=== PATIENT | female | born 1965 | race Caucasian/White ===

== ENCOUNTER 2022-02-16 18:57 | Emergency (ER) | payer SELFPAY ==
[~2022-02-16] VITALS: Ht 160 cm; Wt 59.0 kg
[2022-02-16] MEDS ORDERED: METHYLPREDNISOLONE SOD SUCC 125 MG/2ML VIAL IV ONE (19:15)
[2022-02-16] MEDS ORDERED: ACETAMINOPHEN 325 MG TAB PO ONE ×2 (19:15→19:30)
[2022-02-16 19:16] LABS: BASOPHILS # (AUTO) 0.1 (0.0-0.1); BASOPHILS % 1.2 % (0.0-1.0); EOSINOPHILS # (AUTO) 0.2 (0.0-0.4); EOSINOPHILS % 1.4 % (0.0-6.0); HEMOGLOBIN 14.8 g/dL (12.0-16.0); LYMPHOCYTES # (AUTO) 2.5 (1.0-3.2); LYMPHOCYTES % 23.5 % (18.0-39.1); MEAN CORPUSCULAR HEMOGLOBIN 30.2 pg (28-32); MEAN CORPUSCULAR HGB CONC 33.6 g/dL (31-35); MEAN CORPUSCULAR VOLUME 89.8 fL (81-99); MONOCYTES # (AUTO) 0.8 (0.2-0.8); MONOCYTES % 7.7 % (4.4-11.3); NEUTROPHILS # (AUTO) 7.1 (2.1-6.9); NEUTROPHILS % 65.9 % (38.7-80.0); PLATELET COUNT 275 x10e3/uL (140-360); RED CELL DISTRIBUTION WIDTH 13.6 % (11.7-14.4)
[2022-02-16] MEDS ORDERED: ACETAMINOPHEN 325 MG TAB ONE (19:25)
[2022-02-16 19:33] LABS: ALBUMIN 3.8 g/dL (3.5-5.0); ALBUMIN/GLOBULIN RATIO 1.3 (0.8-2.0); ANION GAP 11.4 mmol/L (8-16); CREATININE, SERUM 0.75 mg/dL (0.57-1.11); POTASSIUM 3.4 mmol/L (3.5-5.1)
[2022-02-16 20:17] VITALS: BP 141/91
== END 2022-02-16 20:10 | disposition home or self-care (01) ==
LOC: ER 19:43
DX: R21 Rash and other nonspecific skin eruption (principal); L25.9 Unspecified contact dermatitis, unspecified cause; R50.9 Fever, unspecified
CPT/HCPCS: 36415; 80053; 83880; 85025; 99283; J2930

== ENCOUNTER 2022-03-03 13:04 | Emergency (ER) | payer SELFPAY ==
[~2022-03-03] VITALS: Ht 160 cm; Wt 59.0 kg
[2022-03-03] MEDS ORDERED: HYDROCODONE/APAP 5MG-325MG TAB PO ONE (13:30)
[2022-03-03] MEDS ORDERED: ACETAMINOPHEN-1 EAC4 PO (13:47)
[2022-03-03] MEDS ORDERED: ANAPROX DS550 MG PEG (13:47)
== END 2022-03-03 14:00 | disposition home or self-care (01) ==
LOC: ER 13:10
DX: R20.2 Paresthesia of skin (principal); M25.532 Pain in left wrist; M25.531 Pain in right wrist; M25.572 Pain in left ankle and joints of left foot; M25.571 Pain in right ankle and joints of right foot; I10 Essential (primary) hypertension
CPT/HCPCS: 99282